=== PATIENT | female | born 1935 | race Caucasian/White ===

== ENCOUNTER 2017-02-15 14:42 | Emergency (ER) | payer MEDICARE ==
[2017-02-15 14:58] VITALS: BP 128/72
--- NOTE | 2017-02-15 15:24 | UC ---
Skin Complaint HPI - HPI Summary HPI Summary: here with a rash on her chest and some faint redness and swelling in L cheek and neck since falling asleep in the sun about a week ago. Started a new thyroid medication (armour) mid January. Here because her PCP office wanted to make sure she's not having an allergic reaction. Pt is not concerned nor uncomfortable. - History of Current Complaint Chief Complaint: UCSkin Time Seen by Provider: 02/15/17 14:56 Stated Complaint: RASH ON NECK Hx Obtained From: Patient ?: No Onset/Duration: Gradual Onset, Lasting Days Skin Exposure Onset/Duration: Days Ago Timing: Constant Onset Severity: Mild Current Severity: Mild Location: Diffuse Character: Swelling, Redness Aggravating: Nothing Associated Signs & Symptoms: Positive: Rash Related History: Recent change in medication - Allergy/Home Medications Allergies/Adverse Reactions: Allergies Allergy/AdvReac Type Severity Reaction Status Date / Time HONEY BEE STINGS Allergy Facial Uncoded 02/15/17 14:58 Redness/Flushing Home Medications: Home Medications Ibuprofen TAB* [Advil TAB*] 400 mg PO PRN 02/15/17 [History] Thyroid [[place] Thyroid] 15 mg PO DAILY 02/15/17 [History Confirmed 02/15/17] Review of Systems Constitutional: Negative Skin: Rash, Other - L facial redness Eyes: Negative ENT: Negative Respiratory: Negative Cardiovascular: Negative Gastrointestinal: Negative Genitourinary: Negative Motor: Negative Neurovascular: Negative Musculoskeletal: Negative Neurological: Negative Psychological: Negative All Other Systems Reviewed And Are Negative: Yes PMH/Surg Hx/FS Hx/Imm Hx Endocrine History: Hypothyroidism - Surgical History Surgical History: Yes Surgery Procedure, Year, and Place: BIOPSIES OF BREAST x 2 BENIGN. BILATERAL TUBAL LIGATION. RIGHT RING FINGER TRIGER RELEASE [facility]. 1994 BILATERAL UPPER EYELIDS [place] - Family History Known Family History: Positive: Hypertension - Social History Occupation: Retired Lives: Alone Alcohol Use: Occasionally Alcohol Amount: 2-3 DRINKS/WEEK Substance Use Type: None Smoking Status (MU): Never Smoked Tobacco Have You Smoked in the Last Year: No Physical Exam Triage Information Reviewed: Yes Appearance: Well-Appearing, No Pain Distress, Well-Nourished Vital Signs: Initial Vital Signs Temp 98.3 F 02/15/17 14:52 Pulse 65 02/15/17 14:52 Resp 16 02/15/17 14:52 BP 128/72 02/15/17 14:52 Pulse Ox 97 02/15/17 14:52 Vital Signs Reviewed: Yes Eye Exam: Normal Eyes: Positive: Conjunctiva Clear ENT Exam: Normal ENT: Positive: Normal ENT inspection, Hearing grossly normal, Pharynx normal, TMs normal Dental Exam: Normal Neck exam: Normal Neck: Positive: Supple, Nontender, No Lymphadenopathy Respiratory Exam: Normal Respiratory: Positive: Chest non-tender, Lungs clear, Normal breath sounds, No respiratory distress, No accessory muscle use Cardiovascular Exam: Normal Cardiovascular: Positive: RRR, No Murmur Musculoskeletal Exam: Normal Neurological Exam: Normal Neurological: Positive: Alert Psychological Exam: Normal Skin Exam: Other - faint redness L cheek, no swelling or streaking. No redness perceptible on L neck. Skin: Positive: rashes - raised rash on chest dry, some scabbed. Course/Dx - Diagnoses Provider Diagnoses: photodermatitis Discharge - Discharge Plan Condition: Stable Disposition: HOME Patient Education Materials: Photosensitivity (ED) Referrals: Paras Hurst MD [Primary Care Provider] - Additional Instructions: I do not see any indication of allergic reaction to your medication, and you do not appear to have a bacterial infection. If the slight redness and swelling in your face/cheek do not improve within a few days, please see your primary care provider to discuss further treatment with steroid.
== END 2017-02-15 15:18 | disposition home or self-care (01) ==
LOC: UCEAST 14:42
DX: L56.8 Other specified acute skin changes due to ultraviolet radiation (principal); X32.XXXA Exposure to sunlight, initial encounter; Y93.84 Activity, sleeping; Y92.9 Unspecified place or not applicable; Y99.9 Unspecified external cause status
CPT/HCPCS: 99211; G0463

== ENCOUNTER → 2017-03-11 08:34 | Day surgery (SDC) | payer MEDICARE ==
[~2017-03-11 08:34] MED LIST: Acetaminophen TAB* 325 MG PO PRN; Buffered Lidocaine 0.9% SYRIN* 5 ML/SYR SYRINGE INTRADERM ONE; Buffered Lidocaine 0.9% SYRIN* 5 ML/SYR SYRINGE ONE; Cyclopentolate 1% OPTH.SOL* 2 ML BTL ONE; Flurbiprofen 0.03% OPTH.SOL* 2.5 ML BTL ONE; Lidocaine 1% MPF* 2 ML VIAL ONE; Midazolam* 1 MG/ML 5 ML VIAL (5 MG) ONE; Neomycin/Polymy/Dex OPTH.SUSP* MAXITROL 0.1% 5 ML ONE; Phenylephrine 2.5% OPTH.SOL* 2 ML BTL ONE; Povidone Iodine 5% OPTH* 30 ML BTL ONE; Proparacaine 0.5% OPHTH.SOL* 15 ML BTL ONE; acetaZOLAMIDE TAB* 250 MG ONE
[2017-03-11 11:06] VITALS: BP 153/87
--- NOTE | 2017-03-12 04:27 | OP ---
DATE OF OPERATION: 03/11/17 [facility] DATE OF : 37 SURGEON: Richard Damico MD PREOPERATIVE DIAGNOSIS: Cataract, left eye. POSTOPERATIVE DIAGNOSIS: Cataract, left eye. OPERATIVE PROCEDURE: Phacoemulsification, left eye with IOL. DESCRIPTION OF PROCEDURE: The patient was brought to the operating room after being given 1/2% Alcaine with epinephrine drops in the preoperative area. The eye was prepped and draped in the usual sterile fashion. Sterile drape and eyelid speculum were placed. Again, topical 1/2% Alcaine with epinephrine was given. A paracentesis incision was made at the 3 o'clock position with the No.75 blade. Clear cornea incision 2.2 x 2.2-mm was created at the 6 o'clock position starting at the anterior limbus using the 2.2-mm keratome. The anterior chamber was irrigated with 0.4 mL of 1% non-preservative intracameral lidocaine and filled with DisCoVisc. A capsulorrhexis was completed using the cystotome and the Utrata forceps. Hydrodissection was performed with balanced salt solution. The lens nucleus was removed with the Phacoemulsification handpiece without incident. Cortex was removed with the irrigation-aspiration handpiece. The capsular bag was re-inflated using DisCoVisc and an [id number] implant was inserted with the shooter. The irrigation-aspiration handpiece was used to remove all residual DisCoVisc. The eye was refilled with balanced salt solution and the wound checked and found to be watertight. Topical Maxitrol drops were given. [id number]/[facility] #: [id number]
== END | disposition home or self-care (01) ==
LOC: OREAST 08:34
PROVIDERS: ATTEND Specialist
DX: H25.12 Age-related nuclear cataract, left eye (principal); E78.5 Hyperlipidemia, unspecified; E03.9 Hypothyroidism, unspecified
CPT/HCPCS: A9270-GY; J2250; V2632